=== PATIENT | female | born 2000 | race Caucasian/White ===

== ENCOUNTER 2019-06-19 20:16 | Observation (INO) | payer OTHER ==
[~2019-06-19] VITALS: Ht 165.1 cm; Wt 104.3 kg
--- OUTSIDE RECORDS SUMMARY | 2019-06-19 20:18 | XMS REPORT ---
Author [facility] Address Unknown Phone Unavailable Care Team Providers Care Costume Design Teacher Name Role Phone Unavailable Unavailable Payers Payer Name Policy Type Policy Number Effective Date Expiration Date Problems This patient has no known problems. Allergies, Adverse Reactions, Alerts Allergy Name Allergy Type Status Severity Reaction(s) Onset Date Inactive Date Treating Clinician Comments No Known Allergies DA Active U 2013-08-16 00:00:00 Medications This patient has no known medications. Results Test Description Test Time Test Comments Text Results Atomic Results Result Comments LACTIC ACID POC 2019-01-21 21:10:00 LACTIC ACID POC (test code=LACTP) 0.8 MMOL/L 0.90-1.70 Performed by certified mixer lever operator at [facility] URINALYSIS [id number] 20:42:00* Test Item Value Reference Range Comments UA COLOR (test code=COLU) YELLOW YEL/STRAW UA APPEARANCE (test code=APPU) SL CLOUDY CLEAR UA GLUCOSE DIPSTICK (test code=DGLUU) NEGATIVE NEGATIVE UA BILIRUBIN DIPSTICK (test code=BILU) NEGATIVE NEGATIVE UA KETONE DIPSTICK (test code=KETU) NEGATIVE NEGATIVE UA SPECIFIC GRAVITY (test code=SGU) 1.008 1.005-1.030 UA BLOOD DIPSTICK (test code=BILLY) NEGATIVE NEGATIVE UA PH DIPSTICK (test code=DELFIN) 7.0 5.0-7.0 UA PROTEIN DIPSTICK (test code=PROU) NEGATIVE NEGATIVE UA UROBILINIOGEN DIPSTICK (test code=URO) 0.2 mg/dL 0.2-1.0 UA NITRITE DIPSTICK (test code=ALICIA) NEGATIVE NEGATIVE UA LEUKOCYTE ESTERASE DIPSTICK (test code=LEUU) 2+ NEGATIVE UA WBC (test code=WBCU) 10-20 WBC/HPF 0-3 UA RBC (test code=RBCU) 4-10 RBC/HPF 0-3 UA BACTERIA (test code=BACU) 1+ /HPF NONE SEEN UA SQUAMOUS CELLS (test code=SQU) 6-10 /HPF NONE SEEN UA MUCUS (test code=MUCU) TRACE /LPF NONE SEEN UA AMORPHOUS SEDIMENT (test code=AMORU) 1+ /HPF NONE BASIC METABOLIC [id number] 19:52:00* Test Item Value Reference Range Comments SODIUM (test code=NA) 138 mEq/L 134-147 POTASSIUM (test code=K) 3.6 mEq/L 3.4-5.0 CHLORIDE (test code=CL) 106 mEq/L 100-108 CARBON DIOXIDE (test code=CO2) 26 mEq/L 21-33 ANION GAP (test code=GAP) 10 0-20 GLUCOSE (test code=GLU) 89 mg/dL 70-110 BLOOD UREA NITROGEN (test code=BUN) 10 mg/dL 7-18 GLOMERULAR FILTRATION RATE (test code=GFR) 92.4 110-120 Units of measure=ml/min/1.73 m2 CREATININE (test code=CREAT) 0.8 mg/dL 0.6-1.3 CALCIUM (test code=CA) 8.8 mg/dL 8.0-10.5 [id number] 19:52:00* Test Item Value Reference Range Comments MAGNESIUM (test code=MAG) 2.10 mg/dL 1.8-2.4 HCG SERUM [id number] 19:52:00* Test Item Value Reference Range Comments HCG SERUM QUAL (test code=HCGQL) SERUM NEGATIVE NEGATIVE THYROID STIMULATING [id number] 19:52:00* Test Item Value Reference Range Comments THYROID STIMULATING HORMONE (test code=TSH) 1.90 0.42-5.47 Results in rod-International Units/mL [id number] 19:41:00* Test Item Value Reference Range Comments D-DIMER (test code=DDIMER) 264 ng/mlFEU <=500 THROMBOSIS AND/OR PULMONARY EMBOLISM AND THE CLINICAL CUT- OFF VALUE FOR EXCLUSION (500 ng/mL FEU) OF THESE CONDITIONSIS VALIDATED BY THE TELETYPIST OF THE METHOD. A NEGATIVE D-DIMER RESULT WHEN COMBINED WITH A CLINICALASSESSMENT OF LOW PRETEST PROBABILITY HAS BEEN SHOWN TO HAVEA HIGH NEGATIVE PREDICTIVE VALUE OF DVT OR PE. D-DIMER VALUES >500 ng/mL FEU ARE NOT DIAGNOSTIC FOR DVT, PEor DIC WITHOUT OTHER CONFIRMATORY TESTS AND APPROPRIATECLINICAL EUALUATIONS. BASIC METABOLIC [id number] 19:40:00* Test Item Value Reference Range Comments SODIUM (test code=NA) 138 mEq/L 134-147 POTASSIUM (test code=K) 3.6 mEq/L 3.4-5.0 CHLORIDE (test code=CL) 106 mEq/L 100-108 CARBON DIOXIDE (test code=CO2) 26 mEq/L 21-33 ANION GAP (test code=GAP) 10 0-20 GLUCOSE (test code=GLU) 89 mg/dL 70-110 BLOOD UREA NITROGEN (test code=BUN) 10 mg/dL 7-18 GLOMERULAR FILTRATION RATE (test code=GFR) 92.4 110-120 Units of measure=ml/min/1.73 m2 CREATININE (test code=CREAT) 0.8 mg/dL 0.6-1.3 CALCIUM (test code=CA) 8.8 mg/dL 8.0-10.5 [id number] 19:40:00* Test Item Value Reference Range Comments MAGNESIUM (test code=MAG) 2.10 mg/dL 1.8-2.4 HCG SERUM [id number] 19:40:00* Test Item Value Reference Range Comments HCG SERUM QUAL (test code=HCGQL) SERUM NEGATIVE NEGATIVE THYROID STIMULATING [id number] 19:40:00* Test Item Value Reference Range Comments THYROID STIMULATING HORMONE (test code=TSH) 0.42-5.47 BASIC METABOLIC [id number] 19:36:00* Test Item Value Reference Range Comments SODIUM (test code=NA) mEq/L 134-147 POTASSIUM (test code=K) mEq/L 3.4-5.0 CHLORIDE (test code=CL) mEq/L 100-108 CARBON DIOXIDE (test code=CO2) mEq/L 21-33 ANION GAP (test code=GAP) 0-20 GLUCOSE (test code=GLU) mg/dL 70-110 BLOOD UREA NITROGEN (test code=BUN) mg/dL 7-18 GLOMERULAR FILTRATION RATE (test code=GFR) 110-120 CREATININE (test code=CREAT) mg/dL 0.6-1.3 CALCIUM (test code=CA) mg/dL 8.0-10.5 [id number] 19:36:00* Test Item Value Reference Range Comments MAGNESIUM (test code=MAG) mg/dL 1.8-2.4 HCG SERUM [id number] 19:36:00* Test Item Value Reference Range Comments HCG SERUM QUAL (test code=HCGQL) SERUM NEGATIVE NEGATIVE THYROID STIMULATING [id number] 19:36:00* Test Item Value Reference Range Comments THYROID STIMULATING HORMONE (test code=TSH) 0.42-5.47 - XR CHEST 2 [id number] 19:36:00 FAX: Elizabeth White NP [phone] [place]: St: REG Name: Jaqueline HERNANDEZENPATRICE FELIPE [facility] : [birth year] Age/S: 18/F [address] [place] [address] Unit #: [id number] Loc: [place] [address] Phys: Elizabeth White NP Acct: [id number] Dis Date: Status: REG ER PHONE #: [phone] Exam Date: 01/21/20191930 FAX #: [phone] Reason: Chest Pain EXAMS: CPT CODE: [id number] XR CHEST 2 V 16490 CHEST, TWO-VIEW: H ISTORY: Acute chest pain COMPARISON EXAM(S): No recent pertinent exams for comparison. FINDINGS: The cardiac silhouette is within normal limits and the lungs are clear. No pleural fluid or evidence of pne umothorax. The skeletal structures are unremarkable. IMPRESSION: Negative examination of the chest. SL:01 at 1936 R eported and signed by: John Fenton M.D. CC: Elizabeth morales HAT CONDITIONER Technologist: Samantha Alvares, RT(R) Trnscrd Date/Time/By: 01/21/2019 (1935) : By: alissa WHITEJ Orig Print D/T: S: 01/21/2019 (1938) P AGE 1 Signed Report TROPONIN-I [id number] 19:26:00* Test Item Value Reference Range Comments TROPONIN-I RAPID (test code=TROPIRAP) 0.01 ng/mL 0.00-0.08 Performed by certified mixer lever operator at [facility] Negative: <=0.08 Positive: >=0.09An elevated troponin value alone is not sufficient todiagnose a myocardial infarction. Rather, the patient sclinical presentation (history, physical exam) and ECGshould be used in conjunction with troponin in thediagnostic evaluation of suspected myocardial infarction. Aserial sampling protocol is recommended to facilitate the identification of temporal changes in troponin levels characteristic of CT. CBC W/AUTO [id number] 19:26:00* Test Item Value Reference Range Comments WHITE BLOOD CELL (test code=WBC) 16.47 x10 3/uL 4.5-11.0 RED BLOOD CELL (test code=RBC) 4.91 x10 6/uL 3.54-5.02 HEMOGLOBIN (test code=HGB) 12.6 g/dL 11.0-15.0 HEMATOCRIT (test code=HCT) 39.6 % 33.0-45.0 MEAN CELL VOLUME (test code=MCV) 80.7 fL 81.0-99.0 MEAN CELL HGB (test code=MCH) 25.7 pg 27.0-33.0 MEAN CELL HGB CONCETRATION (test code=MCHC) 31.8 g/dL 33.0-37.0 RED CELL DISTRIBUTION WIDTH CV (test code=RDW) 16.2 % 11.5-14.5 RED CELL DISTRIBUTION WIDTH SD (test code=RDW-SD) 47.6 fL 37.0-54.0 PLATELET COUNT (test code=PLT) 465 x10 3/uL 150-400 MEAN PLATELET VOLUME (test code=MPV) 9.0 fL 7.0-9.0 NEUTROPHIL % (test code=NT%) 75.1 % 56.0-77.0 IMMATURE GRANULOCYTE % (test code=IG%) 0.7 % 0.0-2.0 LYMPHOCYTE % (test code=LY%) 18.0 % 14.0-32.0 MONOCYTE % (test code=MO%) 4.9 % 4.8-9.0 EOSINOPHIL % (test code=EO%) 0.8 % 0.3-3.7 BASOPHIL % (test code=BA%) 0.5 % 0.0-2.0 NUCLEATED RBC % (test code=NRBC%) 0.0 % 0-0 NEUTROPHIL # (test code=NT#) 12.37 x10 3/uL 2.0-7.6 IMMATURE GRANULOCYTE # (test code=IG#) 0.12 x10 3/uL 0.00-0.03 LYMPHOCYTE # (test code=LY#) 2.96 x10 3/uL 1.0-3.8 MONOCYTE # (test code=MO#) 0.81 x10 3/uL 0.1-0.8 EOSINOPHIL # (test code=EO#) 0.13 x10 3/uL 0.0-0.2 BASOPHIL # (test code=BA#) 0.08 x10 3/uL 0.0-0.2 NUCLEATED RBC # (test code=NRBC#) 0.00 x10 3/uL 0.0-0.1 MANUAL DIFF REQUIRED (test code=MDIFF) NO
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
[2019-06-19] MEDS ORDERED: SODIUM CHLORIDE 0.9% 1000ML 1,000 ML IV STA (20:27)
[2019-06-19] MEDS ORDERED: PROMETHAZINE 25MG/ NS 50ML (IV) IV ONE (20:30)
[2019-06-19] MEDS ORDERED: KETOROLAC TROMETHAMINE 30 MG/ML VIAL IV ONE (20:30)
[2019-06-19] MEDS ORDERED: HYDROCODONE/APAP 5MG-325MG TAB PO ONE (20:30)
[2019-06-19] MEDS ORDERED: PROMETHAZINE HCL (IM) 25 MG/ML VIAL ONE (20:45)
[2019-06-19] MEDS ORDERED: SODIUM CHLORIDE 0.9% 1000ML 1,000 ML ONE (20:45)
--- NOTE | 2019-06-19 21:38 | NUR ---
[facility] NOTIFIED OF TRANSFER ETA 30-45 MINUTES GIVEN
--- NOTE | 2019-06-19 21:40 | Diagnostic Imaging Report ---
Knee limited left CPT code: 73435 Indication: Pain Technique: AP and lateral images obtained of the left knee. Comparison: None Findings: The osseous structures are well-developed and mineralized without fracture, dislocation, focal osseous lesions. No joint effusion or radiopaque foreign body in the soft tissues. IMPRESSION: No abnormalities to explain pain. Signed by: Dr. Amy Morin MD on 06/19/2019 9:36 PM
[2019-06-19] MEDS ORDERED: CEFTRIAXONE SOD 1 GM/NS 50 ML 50 ML IV ONE (21:45)
[2019-06-19] MEDS ORDERED: CEFTRIAXONE SOD 1 GM VIAL IV ONE (21:45)
[2019-06-19] MEDS ORDERED: VANCOMYCIN 1GM/NS 250 ML 250 ML IV ONE (21:45)
[2019-06-19] MEDS ORDERED: CEFTRIAXONE SOD 1 GM VIAL ONE (21:50)
[2019-06-19] MEDS ORDERED: VANCOMYCIN 1GM/NS 250 ML 250 ML ONE (21:50)
[2019-06-19] MEDS ORDERED: HYDROCODONE/APAP 7.5MG-325MG 1 EA TAB PO PRN (22:00)
[2019-06-19] MEDS ORDERED: IBUPROFEN 200 MG TAB PO PRN (22:00)
[2019-06-19] MEDS ORDERED: ONDANSETRON HCL INJ 2MG/ML 2ML 2 MG/ML VIAL IV PRN (22:00)
[2019-06-19] MEDS ORDERED: ZOLPIDEM TARTRATE 5 MG TAB PO PRN (22:00)
[2019-06-19] MEDS ORDERED: DIPHENHYDRAMINE HCL INJ 50 MG/ML VIAL IV PRN (22:00)
[2019-06-19] MEDS ORDERED: ACETAMINOPHEN 325 MG TAB PO PRN (22:00)
[2019-06-20] VITALS (7 sets, daily range): BP systolic 99–118; BP diastolic 50–80
[2019-06-20 05:42] LABS: ANION GAP 12.4 mmol/L (8-16); BLOOD UREA NITROGEN 12 mg/dL (7-26); BUN/CREATININE RATIO 16 (6-25); CALCIUM 8.6 mg/dL (8.4-10.2); CARBON DIOXIDE 21 mmol/L (22-29); CHLORIDE 111 mmol/L (98-107); CREATININE, SERUM 0.75 mg/dL (0.57-1.11); EST GLOMERULAR FILTRATION RATE > 60 ML/MIN (60-); GLUCOSE 88 mg/dL (74-118); POTASSIUM 4.4 mmol/L (3.5-5.1); SODIUM 140 mmol/L (136-145)
[2019-06-20 06:41] LABS: BASOPHILS # (AUTO) 0.1 (0.0-0.1); BASOPHILS % 0.4 % (0.0-1.0); EOSINOPHILS # (AUTO) 0.2 (0.0-0.4); EOSINOPHILS % 1.1 % (0.0-6.0); HEMATOCRIT 36.1 % (34.2-44.1); LYMPHOCYTES # (AUTO) 4.5 (1.0-3.2); LYMPHOCYTES % 33.1 % (18.0-39.1); MEAN CORPUSCULAR HEMOGLOBIN 24.8 pg (28-32); MEAN CORPUSCULAR HGB CONC 30.5 g/dL (31-35); MEAN CORPUSCULAR VOLUME 81.5 fL (81-99); MONOCYTES % 7.6 % (4.4-11.3); NEUTROPHILS # (AUTO) 7.7 (2.1-6.9); NEUTROPHILS % 57.3 % (38.7-80.0); PLATELET COUNT 407 x10e3/uL (140-360); RED BLOOD COUNT 4.43 x10e6/uL (3.6-5.1); RED CELL DISTRIBUTION WIDTH 15.9 % (11.7-14.4)
--- NOTE | 2019-06-20 07:09 | NUR ---
REPORT GIVEN TO AM NURSE.
[2019-06-20] MEDS: FAMOTIDINE 20 MG TAB PO SCH ×2 (08:15→15:48)
[2019-06-20] MEDS ORDERED: KETOROLAC TROMETHAMINE 30 MG/ML VIAL IM PRN (09:15)
--- NOTE | 2019-06-20 13:45 | NUR ---
Visit made by the Spiritual Care Department Pastoral Visitor, Izzy Nelson. PV provided pastoral presence, prayer, hospitality, and supportive listening. Pastoral Visitor informed pt/family of the scope of Regulatory Internship Services and availability. ZA BURROWS Copy Technician Spiritual Care Department O: [phone] Pager: [phone] ([phone] number calling from)
--- NOTE | 2019-06-20 14:00 | History and Physical ---
HISTORY OF PRESENT ILLNESS: A 19-year-old female with no past medical history came here with severe left knee pain. REVIEW OF SYSTEMS: CARDIOVASCULAR: No chest pain or palpitation. RESPIRATORY: No shortness of breath. No cough. GASTROINTESTINAL: No nausea or vomiting. No diarrhea. GENITOURINARY: No frequency or dysuria. ALLERGIES: NOT ALLERGIC TO ANYTHING. SOCIAL HISTORY: She smokes. She does not drink. PAST MEDICAL HISTORY: Negative for any significant medical condition. PHYSICAL EXAMINATION: VITAL SIGNS: Blood pressure 99/59, temperature 97.2, heart rate 90 per minute, respiratory rate 16 per minute, and oxygen saturation 97%. LABORATORY DATA: On the CBC; white blood count 13,480, hemoglobin 11.0, hematocrit 36.1, and platelet count 407,000. On the BMP; sodium 140, potassium 4.4, chloride 111, CO2 21, BUN 12, creatinine 0.75, and glucose 88. Uric acid 4.3. Calcium 8.6. On the x-ray, we have an x-ray showed no abnormality to explain the pain. The patient is going to be having an MRI of the left knee also. FINAL IMPRESSION: 1. Left knee pain. 2. Obesity. 3. Leukocytosis. PLAN OF TREATMENT: We are going to order an MRI of the knee due to her severe pain. We are going to also put the patient on Voltaren gel 4 g to the left knee q.6 hours. We are going to use Toradol 30 mg IV q.6 hours as needed for severe pain and Orthopedic Surgical consult with Dr. Benjamin. MD ROSALBA Whitt/NATE /[id number]
--- NOTE | 2019-06-20 14:15 | Diagnostic Imaging Report ---
TECHNIQUE: Magnetic resonance imaging of the LEFT KNEE was performed WITHOUT injected contrast. HISTORY: Left knee pain COMPARISON: None available. FINDINGS: LIGAMENTS AND TENDONS: ACL: Intact PCL: Intact Collateral ligaments: Intact Iliotibial band: Unremarkable Popliteal tendon: Intact Extensor mechanism: Intact JOINT: Menisci: Medial: Intact Lateral: Intact Articular Cartilage: Medial Compartment: No focal defect Lateral Compartment: No focal defect Patellofemoral Compartment: No focal defect. Joint Fluid: Small joint effusion. BONE: No focal or infiltrative bone marrow replacing abnormality. No acute fracture. SOFT TISSUES: Otherwise, unremarkable. IMPRESSION: Small joint effusion. No acute osseous, ligamentous, or meniscal abnormality. Signed by: Dr. Manuel Lawrence M.D. on 06/20/2019 2:12 PM
--- NOTE | 2019-06-20 16:03 | NUR ---
Nutrition Screen Note RD Recommendation for Physician: - Continue Regular diet as tolerated Plan of Care: RD following, monitoring for tolerance and adequacy Nutrition reason for involvement: Nutrition Risk Trigger- MST Primary Diagnose(s): fever, knee pain, leukocytosis PMH: No PMH Ht: 65 in Wt: 230 lb BMI: 38.3 kg/m2 IBW: [address] Assessment: (06/20) 19 YOF admitted for fever, knee pain, and leukocytosis. Pt seen today per MST screen. 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 Pt reports UBW of 230lb and denies wt loss. Pt reports some nausea today 2/2 pain and pain meds, denies additional GI distress. Pt with no questions or concerns at time of visit. Pt discussed during am rounds. Chart reviewed. Labs and meds reviewed. Will continue to monitor. Current Diet: Regular Malnutrition Evaluation (06/20/19) The patient does not meet criteria for a specified degree of malnutrition at this time. Will re-evaluate at follow-up as appropriate. Diet Education Needs Assessment: Diet education not indicated, pt on Regular diet. Diet tolerance: tolerating po Nutrition Care Level: Low Signed: Monica Ayoub RD, LD, CNSC
[2019-06-20] MEDS ORDERED: KETOROLAC TROMETHAMINE 30 MG/ML VIAL IV ONE (18:05)
--- NOTE | 2019-06-20 18:21 | NUR ---
ORTHOPEDIC CONSULTATION 19 year old F community ambulator without assistive device presents to the ED with left knee pain for the past month with now an inability to ambulate with a low grade fever. She denies any fevers today. Pain localized to medial side of knee and feels that it randomly pinches. 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 Left Knee: No open lesions or sores, no gross deformity TTP of medial retinaculum and joint line, palpable cord, reproducible pain ROM 0-90 1A Brandi Negative Anterior or Posterior Drawer No Laxity with MCL and LCL at 0 and 30 degrees Negative Saqib Xrays: 2 views of left knee no gross fracture or dislocation or gross degenerative changes MRI: small effusion, prominent plica, no ligament or menisci tear. 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 All questions answered. DO OZZY [facility]
--- NOTE | 2019-06-21 09:34 | Discharge Summary ---
HOSPITAL COURSE: A 19-year-old female with no past medical history, came to the hospital complaining of severe knee pain. The patient had an MRI of the knee done. She was seen by Dr. Benjamin, orthopedic surgeon, who released her to go home with pain management. PHYSICAL EXAMINATION: HEART: Showed regular rhythm. Normal S1, S2 sound. LUNGS: Clear bilaterally. ABDOMEN: Soft. EXTREMITIES: Show no evidence of cyanosis or hematoma. Some mild tenderness of the left knee. IMPRESSION: 1. Severe left knee pain. 2. Obesity. 3. Leukocytosis. As I said, the patient was discharged home by Dr. Benjamin, orthopedic surgeon with instructions to follow up with him in a week and she also received a prescription for pain medication for pain control in the left knee. MD ROSALBA Whitt/NATE /[id number]
== END 2019-06-20 18:22 | disposition home or self-care (01) ==
LOC: FSED 20:16 → ERHOLD 21:34 → IMCU 23:17
PROVIDERS: ADMIT Internal Medicine; ATTEND Internal Medicine
DX: M25.562 Pain in left knee (principal); E66.9 Obesity, unspecified; Z68.38 Body mass index [BMI] 38.0-38.9, adult; D72.829 Elevated white blood cell count, unspecified; G89.29 Other chronic pain
CPT/HCPCS: 36415; 73560; 73721; 80048; 84550; 85025; 87040; 87086; 96374; 99284; G0378 ×2; J0696; J1885 ×2; J2550; J3370; J7030

== ENCOUNTER 2020-09-02 12:08 | Emergency (ER) | payer OTHER ==
[~2020-09-02] VITALS: Ht 165.1 cm; Wt 104.3 kg
[2020-09-02 13:13] LABS: BASOPHILS # (AUTO) 0.1 (0.0-0.1); BASOPHILS % 0.6 % (0.0-1.0); EOSINOPHILS # (AUTO) 0.1 (0.0-0.4); EOSINOPHILS % 0.6 % (0.0-6.0); HEMATOCRIT 42.1 % (34.2-44.1); HEMOGLOBIN 13.1 g/dL (12.0-16.0); LYMPHOCYTES # (AUTO) 2.5 (1.0-3.2); LYMPHOCYTES % 18.8 % (18.0-39.1); MEAN CORPUSCULAR HEMOGLOBIN 24.8 pg (28-32); MEAN CORPUSCULAR HGB CONC 31.1 g/dL (31-35); MEAN CORPUSCULAR VOLUME 79.6 fL (81-99); MONOCYTES # (AUTO) 0.7 (0.2-0.8); NEUTROPHILS # (AUTO) 9.7 (2.1-6.9); NEUTROPHILS % 74.4 % (38.7-80.0); PLATELET COUNT 422 x10e3/uL (140-360); RED BLOOD COUNT 5.29 x10e6/uL (3.6-5.1); RED CELL DISTRIBUTION WIDTH 16.7 % (11.7-14.4)
[2020-09-02 13:21] LABS: INR 0.99; PROTHROMBIN TIME 13.7 seconds (11.9-14.5)
[2020-09-02 13:22] LABS: PARTIAL THROMBOPLASTIN TIME 28.9 seconds (23.8-35.5)
[2020-09-02 13:29] LABS: ALANINE AMINOTRANSFERASE 20 IU/L (0-55); ALBUMIN 3.3 g/dL (3.5-5.0); ALBUMIN/GLOBULIN RATIO 0.8 (0.8-2.0); ALKALINE PHOSPHATASE 71 IU/L (40-150); ANION GAP 14.3 mmol/L (8-16); BLOOD UREA NITROGEN 9 mg/dL (7-26); BUN/CREATININE RATIO 12 (6-25); CALCIUM 8.9 mg/dL (8.4-10.2); CARBON DIOXIDE 22 mmol/L (22-29); CHLORIDE 107 mmol/L (98-107); CREATININE, SERUM 0.77 mg/dL (0.57-1.11); EST GLOMERULAR FILTRATION RATE > 60 ML/MIN (60-); GLUCOSE 97 mg/dL (74-118); POTASSIUM 4.3 mmol/L (3.5-5.1); SODIUM 139 mmol/L (136-145)
[2020-09-02] MEDS ORDERED: SODIUM CHLORIDE 0.9% 50ML 50 ML ONE (13:36)
[2020-09-02] MEDS ORDERED: IOPAMIDOL 370 MG/ML 200 ML INFUS..BTL INJ ONE (13:36)
[2020-09-02] MEDS ORDERED: MECLIZINE HCL12.5 MG PO (16:39)
[2020-09-02] MEDS ORDERED: ZOFRAN4 MG SL (16:39)
[2020-09-02 16:52] VITALS: BP 137/74
== END 2020-09-02 16:54 | disposition home or self-care (01) ==
LOC: ER 12:55
DX: R06.00 Dyspnea, unspecified (principal); R05 Cough
CPT/HCPCS: 36415; 71260; 80053; 84702; 85025; 85610; 85730; 99284; Q9967